=== PATIENT | female | born 2000 | race African-American/Black ===

== ENCOUNTER 2020-10-23 19:50 | Emergency (ER) | payer MEDICAID ==
[~2020-10-23] VITALS: Ht 177.8 cm; Wt 147.4 kg
[2020-10-23] MEDS ORDERED: Hydrogen Peroxide 473ml Bottle TOPIC ONE (20:15)
[2020-10-23] MEDS ORDERED: Bacitracin Oint UD TOPIC ONE (20:15)
[2020-10-23] MEDS ORDERED: LET 3ml Soln TOPIC ONE (20:15)
[2020-10-23] MEDS ORDERED: Tetanus/Diptheria/Pertussis IM ONE (20:15)
[2020-10-23] MEDS ORDERED: Lidocaine 1% 10mg/ml/Epi 0.005mg/ml 10ml INJ ONE (20:15)
--- NOTE | 2020-10-23 21:31 | Emergency Room Report ---
History of Present Illness General Chief Complaint: Laceration Source: Patient Present Illness HPI Patient hit her lip with a fall today. There was some bleeding. The upper lip is split open in several places. She has tooth pain but is not loose. She says she nearly lost consciousness but did not. She denies any neck pain. She is not sure when her last tetanus vaccination was and is requesting another one at this time. Patient has had prior laceration to her lower lip many years ago. History of asthma. Patient denies exposure to Covid positive contacts. No fevers or chills. No shortness of breath at this time. Last menstruation October 08 normal. Allergies: Coded Allergies: NUT - UNSPECIFIED (Verified Allergy, Unknown, 10/23/20) COVID-19 Screening Contact w/high risk pt: No Experienced COVID-19 symptoms?: No COVID-19 Testing performed MANAGER LATIN: No Patient History Past Medical History: see triage record Social History: Reports: smoking Social History Narrative From home Reviewed Nursing Documentation: PMH: Agreed; PSxH: Agreed Nursing Documentation-PMH Past Medical History: No History, Except For Hx Asthma: Yes Review of Systems Constitutional: Denies: fever Eye: Denies: blurred vision ENT: Reports: see HPI Respiratory: Reports: see HPI Genitourinary: Reports: see HPI Musculoskeletal: Reports: see HPI Skin: Reports: see HPI Neurological: Reports: see HPI Physical Exam Vital Signs Date Time Temp Pulse Resp B/P (MAP) Pulse Ox O2 Delivery O2 Flow Rate FiO2 10/23/20 20:05 98.2 106 17 132/56 (81) 98 Room Air Sp02 EP Interpretation: reviewed, normal General Appearance: well appearing, no apparent distress, GCS 15, obese Head: normocephalic Eyes: bilateral eye normal inspection, bilateral eye PERRL, bilateral eye EOMI ENT: moist mucus membranes, other - Laceration left upper lip. Teeth are stable and not chipped Neck: full range of motion, supple Respiratory: normal inspection Cardiovascular #1: regular rate, rhythm Cardiovascular #2: 2+ radial (R) Gastrointestinal: normal inspection, overweight Musculoskeletal: gait/station normal Neurologic: alert, motor strength/tone normal, ingot caster III-XII nml as tested, oriented x3, sensory intact, cerebellar normal, speech normal Psychiatric: mood/affect normal Skin: normal color, pallor, laceration - Left upper lip Procedures Laceration/Wound Repair Laceration/Wound Repair : Consent: Verbal Wound Location: face - Left upper lip Wound's Depth, Shape: into muscle, irregular, stellate Wound Length (cm): 1 - 1.5 Wound Explored: clean - With some clot material Irrigated w/ Saline (ccs): 10 Betadine Prep?: Yes Anesthesia: Lidocaine w/ Epi - Alveolar block Volume Anesthetic (ccs): 1 - 1.5 Wound Debrided: minimal Suture Size/Type: 6:0, proline Layer Closure?: No Patient Tolerated: Well Complications: None Progress Minimal debridement. The laceration ends partially through the vermilion border. This was approximated first. Excellent approximation with cosmetic closure, Medical Decision Making Diagnostic Impression: Primary Impression: Lip laceration Qualified Codes: S01.511A - Laceration without foreign body of lip, initial encounter ER Course Patient presents post alleged slip and fall with a lip laceration. The laceration needs surgical repair and this is somewhat cosmetic. See procedure note Patient tolerated the laceration repair well. Discussed treatment plan with patient. Stable for outpatient observation and treatment. Last Vital Signs Date Time Temp Pulse Resp B/P (MAP) Pulse Ox O2 Delivery O2 Flow Rate FiO2 10/23/20 21:41 97.8 78 16 140/80 97 Room Air Status: improved Disposition: HOME, SELF-CARE Condition: Improved Scripts Bacitracin (Bacitracin) 28.4 Gm Oint...g. 1 APPLIC TOPIC BID, #20 GM Prov: Wale Lind MD 10/23/20 Ibuprofen* (MOTRIN*) 600 Mg Tablet 600 MG ORAL Q6H PRN for FOR PAIN, #16 TAB 0 Refills Prov: Wale Lind MD 10/23/20 Referrals: [facility],REFERRING (PCP) Wale Lind MD Oct 23, 2020 21:31
[2020-10-23] MEDS ORDERED: BACITRACIN15 GM TOPIC (21:33)
[2020-10-23] MEDS ORDERED: IBUPROFEN600 M1 ORAL (21:33)
--- NOTE | 2020-10-23 21:39 | NUR ---
sutures to laceration applied by md discharged home with instruction and rx follow up with pmd
[2020-10-23 21:41] VITALS: BP 130/80
== END 2020-10-23 21:46 | disposition home or self-care (01) ==
LOC: EMR 20:25
DX: S01.511A Laceration without foreign body of lip, initial encounter (principal); F17.200 Nicotine dependence, unspecified, uncomplicated; J45.909 Unspecified asthma, uncomplicated; W01.10XA Fall on same level from slipping, tripping and stumbling with subsequent striking against unspecified object, initial encounter; Y93.9 Activity, unspecified; Y92.9 Unspecified place or not applicable; Z91.018 Allergy to other foods
CPT/HCPCS: 12011; 90471; 90715; Z7502; 99282